=== PATIENT | male | born 1940 | race Caucasian/White ===

== ENCOUNTER 2023-11-21 13:02 | Outpatient (CLI) | payer MEDICARE, SELFPAY ==
--- NOTE | ~2023-11-21 | PE_ITS ---
EXAMINATION: PET_PETPSMAST_PT DATE: 11/21/2023 15:48 INDICATION: Prostate cancer. TECHNIQUE: 10.08 mCi of piflufolastat F-18 was administered intravenously. Low dose computed tomograp hy (CT) images were acquired from the base of the brain to the proximal thighs for attenuation correc tion and anatomic localization. Automated exposure control was employed. Dose-length product (DLP) wa s 625 mGy-cm. Positron emission tomography (PET) images were acquired in the same distribution. COMPARISON: None FINDINGS: Head/neck: There are no pathologically enlarged lymph nodes. Chest: There is mild emphysema. There is mild atelectasis bilaterally. There is a 6 mm nodule in left lung upper lobe without increased activity. There is mild scarring at the lung apices. Calcified med iastinal lymph nodes are consistent with old granulomatous disease. No pleural effusion. The heart si ze is normal. There are coronary artery calcifications. No pericardial effusion. There are healing fr actures of left fifth and sixth ribs with increased activity, likely benign. Abdomen/pelvis/proximal thighs: The liver and gallbladder are normal. Calcifications in the spleen ar e consistent with old granulomatous disease. The pancreas and adrenal glands are normal. There is cor tical thinning of the kidneys. There is a 10 mm cyst in left kidney. There is no urolithiasis. The pr ostate is mildly enlarged. There is increased activity in the prostate anteriorly and on the left wit h maximum SUV of 44.8. The appendix is normal. 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 There is a stent graft in the ab dominal aorta, the common iliac arteries, right external iliac artery, and right internal iliac arter y. There are no pathologically enlarged lymph nodes. The prostate is mildly enlarged. There is no guido e intraperitoneal fluid. IMPRESSION: 1. Mildly enlarged prostate with increased activity, consistent with primary malignancy. No specific evidence of metastatic disease. 2. 6 mm pulmonary nodule, probably benign. Noncontrast low-dose chest CT is recommended in 6-12 month s. Reviewed, dictated and finalized at location E. [employer] IMPRESSION: 1. Mildly enlarged prostate with increased activity, consistent with primary ma lignancy. No specific evidence of metastatic disease. 2. 6 mm pulmonary nodule, probably benign. Noncontrast low-dose chest CT is rec ommended in 6-12 months.
== END 2023-11-21 13:03 | disposition home or self-care (01) ==
PROVIDERS: PCP Hospitalist; Visit Provider Urology
DX: C61 Malignant neoplasm of prostate (principal); R91.1 Solitary pulmonary nodule
CPT/HCPCS: 78815; A9595